=== PATIENT | female | born 1985 | race Caucasian/White ===

== ENCOUNTER → 2017-03-17 | Outpatient (CLI) | payer OTHER ==
[~2017-03-17] MED LIST: ASCORBIC ACID500 MG PO; B-12 INJ1000 MCG/M IM; BACITRACIN15 G1 TP; COLACE-DPS100 MG PO; FEOSOL-DPS325 MG PO; KEFLEX-DPS500 MG PO; NEURONTIN DPS300 MG PO; NEURONTIN DPS400 MG PO; NORCO 5-325 TA1 EACH PO; NUVARING VAGIN1 EACH VG; OXY IR DPS5 MG PO; SENOKOT DPS8.6 MG PO; TYLENOL EXTRA500 M1 PO; VALIUM-DPS5 MG PO; VOLTAREN TP; XARELTO15 MG PO; XARELTO20 MG PO
== END | disposition home or self-care (01) ==
LOC: RAD.S 13:00
DX: I82.542 Chronic embolism and thrombosis of left tibial vein (principal); I82.532 Chronic embolism and thrombosis of left popliteal vein

== ENCOUNTER 2017-04-11 08:20 | Day surgery (SDC) | payer OTHER ==
[~2017-04-11] VITALS: Ht 167.6 cm; Wt 78.1 kg
== END 2017-04-11 12:09 | disposition home or self-care (01) ==
LOC: RAD.S 08:20 → EDSTATUS 10:00 → RAD.S 10:00
PROC: 06PY3DZ Removal of Intraluminal Device from Lower Vein, Percutaneous Approach (ICD-10-PCS; principal; 2017-04-11)
DX: Z45.2 Encounter for adjustment and management of vascular access device (principal); I82.402 Acute embolism and thrombosis of unspecified deep veins of left lower extremity; Z79.899 Other long term (current) drug therapy